=== PATIENT | female | born 1965 | race Hispanic/Latino ===

== ENCOUNTER 2019-03-16 16:43 | Emergency (ER) | payer SELFPAY ==
[2019-03-16] MEDS ORDERED: DEXAMETHASONE SOD PHOSPHATE 10MG/ML 1ML VIAL ONE (17:16)
== END 2019-03-16 17:25 | disposition home or self-care (01) ==
LOC: EDH 16:43
DX: L25.9 Unspecified contact dermatitis, unspecified cause (principal); E07.9 Disorder of thyroid, unspecified; Z90.49 Acquired absence of other specified parts of digestive tract; Z88.6 Allergy status to analgesic agent; Z87.891 Personal history of nicotine dependence
CPT/HCPCS: 96372; 99283; J1100

== ENCOUNTER 2021-10-15 18:24 | Emergency (ER) | payer OTHER ==
[~2021-10-15] VITALS: Ht 157.5 cm; Wt 63.5 kg
[2021-10-15] MEDS ORDERED: HYDR-3421 PO (19:12)
[2021-10-15] MEDS ORDERED: PERM60CR19 TP (19:12)
[2021-10-15 19:15] VITALS: BP 135/85
[2021-10-15] MEDS ORDERED: HYDROXYZINE 25 MG TABLET PO ONE (19:30)
== END 2021-10-15 19:43 | disposition home or self-care (01) ==
LOC: EDH 18:24
DX: B86 Scabies (principal); E03.9 Hypothyroidism, unspecified; Z88.6 Allergy status to analgesic agent

== ENCOUNTER 2023-03-30 13:06 | Emergency (ER) | payer OTHER ==
[~2023-03-30] VITALS: Ht 157.5 cm; Wt 63.5 kg
[~2023-03-30 13:06] MED LIST: HYDR-3421 PO; PERM60CR19 TP
[2023-03-30] MEDS ORDERED: ALOE118C TP (16:20)
[2023-03-30] MEDS ORDERED: PETR113O TP (16:20)
[2023-03-30] MEDS ORDERED: METH4TAB3 PO (16:20)
[2023-03-30] MEDS ORDERED: LEVO5TAB29 PO (16:21)
[2023-03-30] MEDS ORDERED: HYDR-3421 PO (16:21)
[2023-03-30 17:03] VITALS: BP 130/71; PULSE 80; RESP 16; O2SAT 97
== END 2023-03-30 17:09 | disposition home or self-care (01) ==
LOC: EDH 13:06
DX: L30.9 Dermatitis, unspecified (principal); R21 Rash and other nonspecific skin eruption; E03.9 Hypothyroidism, unspecified; Z90.49 Acquired absence of other specified parts of digestive tract; Z79.899 Other long term (current) drug therapy; Z88.6 Allergy status to analgesic agent